=== PATIENT | female | born 1940 | race Caucasian/White ===

== ENCOUNTER 2016-04-07 15:28 | Emergency (ER) | payer MEDICARE, BC ==
[2016-04-07 20:41] VITALS: BP 139/84
== END 2016-04-07 20:41 | disposition home or self-care (01) ==
LOC: ED 15:28
DX: B34.9 Viral infection, unspecified (principal); R53.83 Other fatigue; R53.81 Other malaise
CPT/HCPCS: J7030

== ENCOUNTER 2016-04-11 15:02 | Observation (INO) | payer MEDICARE, BC ==
--- NOTE | 2016-04-11 15:02 | NUR ---
Pt wheeled over from clinic in a wheelchair to be "directly admitted" per Danuta Michaud at this time, will admit patient Observation status into room 206 with diagnosis of UTI, SOB, cough, fatigue and malaise, pt reports she has been sick for days and finally "hit a wall," she was seen in the ER over the weekend but states she has not gotten any relief, c/o nausea, coughing, fever, chills, and malaise, denies SOB at this time, has intermitten cough that she reports is finally getting some thick yellow phlegm up with it, due to recent c/o chest pain in the ER she is placed on telemetry per Danuta Michaud, patient denies chest pain at this time and thinks it was from coughing, VSS, 20G IV placed in right AC upon arrival, complex assessment completed at charted, no skin breakdown noted at this time, only c/o pain at this time is chronic pain in her back that she states is tolerable just "annoying", upon leaving patient is settled in new room, oriented to call light, in bed with call light within reach and TV on, breathing stable on room air, family is at bedside, she is fully alert and oriented, no further needs or concerns
[2016-04-11 17:23] VITALS: BP 138/86
--- NOTE | 2016-04-11 17:46 | NUR ---
Pt c/o nausea since arrival, PRN Zofran did not help with the nausea, PRN Phenergen given additionally, post administration pt seems to be tired and groggy, she is intermittently slurring her words and just c/o being "tired" and wanting to take a nap, will monitor patient closely
[2016-04-11 18:16] VITALS: BP 156/79
[2016-04-11 18:17] VITALS: BP 156/79
--- NOTE | 2016-04-11 19:04 | NUR ---
Pt no longer slurring words, able to easily arouse, fully alert and oriented, states she remembers everything and laughed about "feeling drunk" after the Phenergen, still tired but cognitively intact
[2016-04-11 19:17] VITALS: BP 156/79
[2016-04-11 22:39] VITALS: BP 122/65
[2016-04-12 02:59] VITALS: BP 127/71
[2016-04-12 06:25] VITALS: BP 128/71
--- NOTE | 2016-04-12 10:30 | NUR ---
Pt sitting up in bed. States she feels 100% better. IV infusing as orderd. Pt denies any pain.
[2016-04-12 11:15] VITALS: BP 125/76
--- NOTE | 2016-04-12 11:35 | NUR ---
straight cathed per order, patient tolerated well, spec labeled and to lab
[2016-04-12] MEDS ORDERED: CEFDINIR300 MG PO (14:15)
[2016-04-12] MEDS ORDERED: POTASSIUM CHLO10 ME5 PO (14:16)
[2016-04-12] MEDS ORDERED: AZITHROMYCIN500 M2 PO (14:16)
[2016-04-12 14:47] VITALS: BP 122/77
--- NOTE | 2016-04-12 14:56 | NUR ---
D/C instructions discussed with pt. Pt reports understanding. IV removed complete/intact. Pt requests that Rx be faxed to [facility] for granddaughters to warp picker. Pt is escorted out to [facility] in hospital parking lot.
== END 2016-04-12 14:56 | disposition home or self-care (01) ==
LOC: AMSURD 15:02 → MED/SURG 15:02 → EDSTATUS 15:39 → MED/SURG 04-12 14:56
PROVIDERS: ADMIT Nurse Practitioner Family
DX: J18.9 Pneumonia, unspecified organism (principal); N39.0 Urinary tract infection, site not specified; B96.1 Klebsiella pneumoniae [K. pneumoniae] as the cause of diseases classified elsewhere; E87.6 Hypokalemia; E86.0 Dehydration; I95.1 Orthostatic hypotension; Z85.038 Personal history of other malignant neoplasm of large intestine; Z79.82 Long term (current) use of aspirin
CPT/HCPCS: G0378; G0379; J0696; J0744; J1650; J2405; J2550; J7030

== ENCOUNTER → 2016-04-15 | Outpatient (CLI) | payer MEDICARE, BC ==
[~2016-04-15] MED LIST: AZITHROMYCIN500 M2 PO; CEFDINIR300 MG PO; POTASSIUM CHLO10 ME5 PO
== END ==
LOC: LAB 10:12
DX: E86.9 Volume depletion, unspecified (principal); E87.6 Hypokalemia

== ENCOUNTER → 2016-04-26 | Outpatient (CLI) | payer MEDICARE, BC | LOC: LAB 08:06 | DX: J18.9 Pneumonia, unspecified organism (principal) ==

== ENCOUNTER → 2017-09-23 | Outpatient (CLI) | payer MEDICARE, BC ==
[2017-09-23 10:54] LABS: EOS # 0.1 (0.04-0.40); EOS % 0.8 % (1.0-5.0); HEMATOCRIT 39.8 % (37.0-47.0); MEAN CELL VOLUME 92 fl (78-100); MEAN CORPUSCULAR HEMOGLOBIN 30 pg (27-31); MEAN CORPUSCULAR HGB CONC 33 g/dL (33-37); MEAN PLATELET VOLUME 10.9 fl (7.4-10.4); MONO # 0.4 (0.20-0.80); NEU # 4.5 (1.40-6.50); PLATELET COUNT 236 K/mm3 (130-400); RED BLOOD COUNT 4.32 M/mm3 (4.10-5.30); RED CELL DISTRIBUTION WIDTH 12.8 % (11.5-14.5); WHITE BLOOD COUNT 5.9 K/mm3 (4.8-10.8)
[2017-09-23 11:34] LABS: ALBUMIN 4.4 g/dL (3.5-5.0); BUN/CREATININE RATIO 22.1 (6.0-26.0); CALCIUM 9.3 mg/dL (8.4-10.2); POTASSIUM 4.3 mmol/L (3.6-5.0); TOTAL PROTEIN 7.9 g/dL (6.3-8.2)
[2017-09-23 12:33] LABS: ERYTHROCYTE SEDIMENTATION RATE 19 mm/hr (0-30)
== END ==
LOC: LAB 10:22
PROVIDERS: Internal Medicine
DX: D64.9 Anemia, unspecified (principal); E78.2 Mixed hyperlipidemia; M85.80 Other specified disorders of bone density and structure, unspecified site; Z85.038 Personal history of other malignant neoplasm of large intestine; E03.9 Hypothyroidism, unspecified

== ENCOUNTER → 2017-10-08 | Outpatient (CLI) | payer MEDICARE, BC | LOC: RAD 13:05 → MAMMO 14:00 → RAD 14:00 | DX: Z13.820 Encounter for screening for osteoporosis (principal); M81.0 Age-related osteoporosis without current pathological fracture ==

== ENCOUNTER → 2017-10-08 | Outpatient (CLI) | payer MEDICARE, BC | LOC: MAMMO 13:06 | DX: Z12.31 Encounter for screening mammogram for malignant neoplasm of breast (principal); N63.20 Unspecified lump in the left breast, unspecified quadrant ==

== ENCOUNTER → 2017-11-24 | Outpatient (CLI) | payer MEDICARE, BC | LOC: RAD 09:15 | DX: M47.894 Other spondylosis, thoracic region (principal); M47.896 Other spondylosis, lumbar region; M41.85 Other forms of scoliosis, thoracolumbar region; M16.0 Bilateral primary osteoarthritis of hip ==

== ENCOUNTER → 2017-12-29 | Outpatient (CLI) | payer MEDICARE, BC | LOC: LAB 09:32 | DX: M81.0 Age-related osteoporosis without current pathological fracture (principal) ==

== ENCOUNTER → 2018-04-20 | Outpatient (CLI) | payer MEDICARE, BC ==
[2018-04-20 15:06] LABS: EOS # 0.1 (0.04-0.40); EOS % 1.4 % (1.0-5.0); HEMATOCRIT 37.8 % (37.0-47.0); HEMOGLOBIN 12.3 g/dL (12.5-16.0); MEAN CELL VOLUME 91 fl (78-100); MEAN CORPUSCULAR HEMOGLOBIN 30 pg (27-31); MEAN CORPUSCULAR HGB CONC 33 g/dL (33-37); MEAN PLATELET VOLUME 10.6 fl (7.4-10.4); MONO # 0.5 (0.20-0.80); PLATELET COUNT 237 K/mm3 (130-400); RED BLOOD COUNT 4.16 M/mm3 (4.10-5.30); RED CELL DISTRIBUTION WIDTH 13.8 % (11.5-14.5); WHITE BLOOD COUNT 5.7 K/mm3 (4.8-10.8)
[2018-04-20 15:17] LABS: ALBUMIN 4.2 g/dL (3.5-5.0); POTASSIUM 4.1 mmol/L (3.6-5.0); TOTAL BILIRUBIN 0.7 mg/dL (0.2-1.3); TOTAL PROTEIN 7.3 g/dL (6.3-8.2)
== END ==
LOC: LAB 14:40
PROVIDERS: Internal Medicine
DX: M85.80 Other specified disorders of bone density and structure, unspecified site (principal); E78.2 Mixed hyperlipidemia; Z85.038 Personal history of other malignant neoplasm of large intestine

== ENCOUNTER → 2019-01-01 | Outpatient (CLI) | payer MEDICARE, BC ==
[2019-01-01 10:12] LABS: POTASSIUM 3.9 mmol/L (3.5-5.1)
[2019-01-01 10:13] LABS: ALBUMIN 4.1 g/dL (3.4-4.8); EOS # 0.1 (0.04-0.40); EOS % 1.4 % (1.0-5.0); HEMATOCRIT 36.5 % (37.0-47.0); HEMOGLOBIN 11.6 g/dL (12.5-16.0); LYMPH# 0.9 (1.50-4.00); MEAN CELL VOLUME 90 fl (78-100); MEAN CORPUSCULAR HEMOGLOBIN 29 pg (27-31); MEAN CORPUSCULAR HGB CONC 32 g/dL (33-37); MEAN PLATELET VOLUME 10.6 fl (7.4-10.4); MONO # 0.3 (0.20-0.80); NEU # 4.2 (1.40-6.50); PLATELET COUNT 290 K/mm3 (130-400); RED BLOOD COUNT 4.05 M/mm3 (4.10-5.30); RED CELL DISTRIBUTION WIDTH 14.6 % (11.5-14.5); WHITE BLOOD COUNT 5.6 K/mm3 (4.8-10.8)
[2019-01-01 10:14] LABS: CALCIUM 9.6 mg/dL (8.3-10.5)
[2019-01-01 10:15] LABS: TOTAL PROTEIN 7.1 g/dL (6.2-8.1)
[2019-01-01 10:17] LABS: TOTAL BILIRUBIN 0.6 mg/dL (0.2-1.2)
[2019-01-01 11:38] LABS: ERYTHROCYTE SEDIMENTATION RATE 15 mm/hr (0-30)
== END ==
LOC: LAB 09:50
PROVIDERS: Internal Medicine
DX: D64.9 Anemia, unspecified (principal); E78.2 Mixed hyperlipidemia; M85.80 Other specified disorders of bone density and structure, unspecified site; Z85.038 Personal history of other malignant neoplasm of large intestine

== ENCOUNTER → 2019-01-19 | Outpatient (CLI) | payer MEDICARE, BC | LOC: MAMMO 08:13 | DX: Z12.31 Encounter for screening mammogram for malignant neoplasm of breast (principal); M81.0 Age-related osteoporosis without current pathological fracture ==

== ENCOUNTER → 2019-10-12 | Outpatient (CLI) | payer MEDICARE, BC | LOC: MAMMO 09:56 | DX: M16.9 Osteoarthritis of hip, unspecified (principal) ==

== ENCOUNTER → 2019-10-19 | Outpatient (CLI) | payer MEDICARE, BC ==
[2019-10-19 10:07] LABS: EOS # 0.1 (0.04-0.40); EOS % 2.2 % (1.0-5.0); HEMATOCRIT 41.3 % (37.0-47.0); HEMOGLOBIN 13.6 g/dL (12.5-16.0); LYMPH# 1.1 (1.50-4.00); MEAN CELL VOLUME 93 fl (78-100); MEAN CORPUSCULAR HEMOGLOBIN 31 pg (27-31); MEAN CORPUSCULAR HGB CONC 33 g/dL (33-37); MONO # 0.4 (0.20-0.80); NEU # 3.8 (1.40-6.50); PLATELET COUNT 222 K/mm3 (130-400); RED BLOOD COUNT 4.44 M/mm3 (4.10-5.30); RED CELL DISTRIBUTION WIDTH 13.3 % (11.5-14.5); WHITE BLOOD COUNT 5.5 K/mm3 (4.8-10.8)
[2019-10-19 10:23] LABS: ALBUMIN 4.3 g/dL (3.4-4.8); POTASSIUM 4.1 mmol/L (3.5-5.1)
[2019-10-19 10:24] LABS: CALCIUM 9.6 mg/dL (8.3-10.5)
[2019-10-19 10:25] LABS: TOTAL PROTEIN 7.7 g/dL (6.2-8.1)
[2019-10-19 10:27] LABS: TOTAL BILIRUBIN 0.7 mg/dL (0.2-1.2)
[2019-10-19 12:34] LABS: ERYTHROCYTE SEDIMENTATION RATE 5 mm/hr (0-30)
== END ==
LOC: LAB 09:49
PROVIDERS: Internal Medicine
DX: Z12.11 Encounter for screening for malignant neoplasm of colon (principal); D64.9 Anemia, unspecified; M85.80 Other specified disorders of bone density and structure, unspecified site; Z85.038 Personal history of other malignant neoplasm of large intestine

== ENCOUNTER → 2020-01-25 | Outpatient (CLI) | payer MEDICARE, BC | LOC: MAMMO 08:28 | DX: Z12.31 Encounter for screening mammogram for malignant neoplasm of breast (principal) ==

== ENCOUNTER → 2021-11-30 | Outpatient (CLI) | payer MEDICARE, BC | LOC: LAB 10:47 | DX: Z00.00 Encounter for general adult medical examination without abnormal findings (principal); Z12.31 Encounter for screening mammogram for malignant neoplasm of breast; Z12.11 Encounter for screening for malignant neoplasm of colon; Z13.29 Encounter for screening for other suspected endocrine disorder; Z13.1 Encounter for screening for diabetes mellitus; E55.9 Vitamin D deficiency, unspecified; K57.90 Diverticulosis of intestine, part unspecified, without perforation or abscess without bleeding; K44.9 Diaphragmatic hernia without obstruction or gangrene; K90.9 Intestinal malabsorption, unspecified; E78.2 Mixed hyperlipidemia; M81.0 Age-related osteoporosis without current pathological fracture; Z85.038 Personal history of other malignant neoplasm of large intestine ==

== ENCOUNTER → 2023-04-09 | Outpatient (CLI) | payer MEDICARE, BC ==
[2023-04-09 14:23] LABS: BASO # 0.04 K/mm3 (0.02-0.10); EOS # 0.05 K/mm3 (0.04-0.40); EOS % 0.8 % (1.0-5.0); HEMATOCRIT 40.4 % (37.0-47.0); HEMOGLOBIN 13.3 g/dL (12.5-16.0); LYMPH# 1.03 K/mm3 (1.50-4.00); MEAN CELL VOLUME 96 fl (78-100); MEAN CORPUSCULAR HEMOGLOBIN 32 pg (27-31); MEAN CORPUSCULAR HGB CONC 33 g/dL (33-37); MEAN PLATELET VOLUME 10.1 fl (7.4-10.4); MONO # 0.41 K/mm3 (0.20-0.80); NEU # 4.89 K/mm3 (1.40-6.50); PLATELET COUNT 231 K/mm3 (130-400); RED CELL DISTRIBUTION WIDTH 11.8 % (11.5-14.5); WHITE BLOOD COUNT 6.4 K/mm3 (4.8-10.8)
[2023-04-09 14:29] LABS: ALBUMIN 4.2 g/dL (3.4-4.8)
[2023-04-09 14:30] LABS: CALCIUM 9.2 mg/dL (8.3-10.5)
[2023-04-09 14:32] LABS: TOTAL PROTEIN 7.1 g/dL (6.2-8.1)
[2023-04-09 14:33] LABS: TOTAL BILIRUBIN 0.86 mg/dL (0.2-1.2)
== END ==
LOC: LAB 14:01
PROVIDERS: Physician Assistant
DX: M81.0 Age-related osteoporosis without current pathological fracture (principal); K90.9 Intestinal malabsorption, unspecified; E78.2 Mixed hyperlipidemia

== ENCOUNTER 2024-04-13 13:01 | Inpatient (IN) | payer MEDICARE, BC ==
[~2024-04-13] VITALS: Ht 149.9 cm; Wt 49.3 kg
[~2024-04-13 13:01] MED LIST changes: -cefTRIAXone 1 G in Water For Injection,Sterile 10 ML IV ONE
[2024-04-13] MEDS ORDERED: Bisacodyl 5 MG TAB PO PRN (14:00)
[2024-04-13] MEDS ORDERED: Acetaminophen 325 MG TAB PO PRN (14:00)
[2024-04-13 14:18] VITALS: BP 165/82
[2024-04-13 15:00] VITALS: BP 143/87
[2024-04-13] MEDS ORDERED: Ondansetron 4 MG/2 ML VIAL IV PRN (15:30)
[2024-04-13] MEDS ORDERED: Iohexol 350 - 100 ML VIAL IV ONE (16:04)
[2024-04-13] MEDS ORDERED: NS 100 ML IV SCH (16:05)
[2024-04-13 19:00] VITALS: BP 120/74
[2024-04-13 22:35] VITALS: BP 120/74
[2024-04-14 03:00] VITALS: BP 115/75
[2024-04-14 05:59] LABS: BASO # 0.01 K/mm3 (0.02-0.10); HEMATOCRIT 37.6 % (37.0-47.0); HEMOGLOBIN 12.5 g/dL (12.5-16.0); LYMPH# 0.63 K/mm3 (1.50-4.00); MEAN CELL VOLUME 95 fl (78-100); MEAN CORPUSCULAR HEMOGLOBIN 32 pg (27-31); MEAN CORPUSCULAR HGB CONC 33 g/dL (33-37); MEAN PLATELET VOLUME 10.7 fl (7.4-10.4); MONO # 0.81 K/mm3 (0.20-0.80); NEU # 8.95 K/mm3 (1.40-6.50); PLATELET COUNT 174 K/mm3 (130-400); RED BLOOD COUNT 3.94 M/mm3 (4.10-5.30); RED CELL DISTRIBUTION WIDTH 12.4 % (11.5-14.5); WHITE BLOOD COUNT 10.4 K/mm3 (4.8-10.8)
[2024-04-14 06:11] LABS: ALBUMIN 3.6 g/dL (3.4-4.8)
[2024-04-14 06:12] LABS: CALCIUM 8.8 mg/dL (8.3-10.5)
[2024-04-14 06:13] LABS: TOTAL PROTEIN 6.7 g/dL (6.2-8.1)
[2024-04-14 06:15] LABS: TOTAL BILIRUBIN 1.2 mg/dL (0.2-1.2)
[2024-04-14 08:12] VITALS: BP 100/67
[2024-04-14] MEDS ORDERED: Albuterol/Ipratropium 3 MG-0.5 MG/3 ML Neb Soln IH SCH (09:05)
[2024-04-14] MEDS ORDERED: Albuterol 0.083% Nebule (2.5 MG/3 ML) IH PRN (09:15)
[2024-04-14 10:28] VITALS: BP 123/74
[2024-04-14] MEDS ORDERED: cefTRIAXone 1 G in Water For Injection,Sterile 10 ML IV SCH (13:00)
[2024-04-14 15:45] VITALS: BP 122/68
[2024-04-14 19:05] VITALS: BP 117/74
[2024-04-14 23:26] VITALS: BP 114/66
[2024-04-15 03:00] VITALS: BP 117/66
[2024-04-15 07:31] VITALS: BP 106/73
[2024-04-15 07:33] LABS: HEMATOCRIT 37.1 % (37.0-47.0); HEMOGLOBIN 12.4 g/dL (12.5-16.0); MEAN CELL VOLUME 95 fl (78-100); MEAN CORPUSCULAR HEMOGLOBIN 32 pg (27-31); MEAN CORPUSCULAR HGB CONC 33 g/dL (33-37); MEAN PLATELET VOLUME 10.6 fl (7.4-10.4); PLATELET COUNT 159 K/mm3 (130-400); RED BLOOD COUNT 3.91 M/mm3 (4.10-5.30); RED CELL DISTRIBUTION WIDTH 12.3 % (11.5-14.5); WHITE BLOOD COUNT 6.9 K/mm3 (4.8-10.8)
[2024-04-15 07:41] LABS: ALBUMIN 3.6 g/dL (3.4-4.8)
[2024-04-15 07:42] LABS: CALCIUM 9.1 mg/dL (8.3-10.5)
[2024-04-15 07:44] LABS: TOTAL PROTEIN 6.8 g/dL (6.2-8.1)
[2024-04-15 07:45] LABS: TOTAL BILIRUBIN 0.9 mg/dL (0.2-1.2)
[2024-04-15 08:15] LABS: LYMPHOCYTE 9 % (20-51); MONOCYTE 6 % (3-10); NEUTROPHILS 85 % (42-75)
[2024-04-15 11:24] VITALS: BP 106/70
[2024-04-15] MEDS ORDERED: cefTRIAXone 1 G,Lidocaine 2.1 ML IM SCH (14:00)
[2024-04-15 15:24] VITALS: BP 132/69
[2024-04-15] MEDS ORDERED: Cholecalciferol (Vit D3) 25 MCG (1,000 Units) TAB PO SCH (16:49)
[2024-04-15] MEDS ORDERED: Cyanocobalamin (Vit B-12) 1,000 MCG TAB PO SCH (16:50)
[2024-04-15] MEDS ORDERED: Azithromycin 250 MG TAB PO ONE (17:00)
[2024-04-15 19:51] VITALS: BP 122/82
[2024-04-15 23:21] VITALS: BP 102/66
[2024-04-16 03:00] VITALS: BP 103/66
[2024-04-16 06:50] LABS: HEMATOCRIT 33.6 % (37.0-47.0); HEMOGLOBIN 11.4 g/dL (12.5-16.0); MEAN CELL VOLUME 94 fl (78-100); MEAN CORPUSCULAR HEMOGLOBIN 32 pg (27-31); MEAN CORPUSCULAR HGB CONC 34 g/dL (33-37); MEAN PLATELET VOLUME 10.6 fl (7.4-10.4); PLATELET COUNT 177 K/mm3 (130-400); RED BLOOD COUNT 3.58 M/mm3 (4.10-5.30); RED CELL DISTRIBUTION WIDTH 12.2 % (11.5-14.5); WHITE BLOOD COUNT 4.2 K/mm3 (4.8-10.8)
[2024-04-16 07:00] LABS: ALBUMIN 3.3 g/dL (3.4-4.8)
[2024-04-16 07:03] LABS: TOTAL PROTEIN 6.4 g/dL (6.2-8.1)
[2024-04-16 07:05] LABS: TOTAL BILIRUBIN 0.6 mg/dL (0.2-1.2)
[2024-04-16 07:16] VITALS: BP 124/78
[2024-04-16] MEDS ORDERED: Azithromycin 250 MG TAB PO SCH (09:00)
[2024-04-16 09:01] LABS: LYMPHOCYTE 15 % (20-51); MONOCYTE 8 % (3-10); NEUTROPHILS 77 % (42-75)
[2024-04-16 11:19] VITALS: BP 109/70
[2024-04-16 15:35] VITALS: BP 109/71
== END 2024-04-16 19:12 | disposition swing bed (61) | DRG 690 ==
LOC: MED/SURG 13:01
PROVIDERS: Family Medicine; ADMIT Physician Assistant
DX: N39.0 Urinary tract infection, site not specified (principal); J01.90 Acute sinusitis, unspecified; E87.6 Hypokalemia; B96.20 Unspecified Escherichia coli [E. coli] as the cause of diseases classified elsewhere; R09.02 Hypoxemia; R53.81 Other malaise; Z66 Do not resuscitate
CPT/HCPCS: J0696; J1650; J2405; Q9967

== ENCOUNTER → 2024-04-13 | Emergency (ER) | payer MEDICARE, BC ==
[~2024-04-13] VITALS: Ht 152.4 cm; Wt 63.1 kg
[~2024-04-13] MED LIST changes: +cefTRIAXone 1 G in Water For Injection,Sterile 10 ML IV ONE
[2024-04-13 11:16] LABS: HEMATOCRIT 38.9 % (37.0-47.0); HEMOGLOBIN 12.8 g/dL (12.5-16.0); MEAN CELL VOLUME 97 fl (78-100); MEAN CORPUSCULAR HEMOGLOBIN 32 pg (27-31); MEAN CORPUSCULAR HGB CONC 33 g/dL (33-37); MEAN PLATELET VOLUME 10.3 fl (7.4-10.4); PLATELET COUNT 141 K/mm3 (130-400); RED BLOOD COUNT 4.03 M/mm3 (4.10-5.30); RED CELL DISTRIBUTION WIDTH 12.3 % (11.5-14.5); WHITE BLOOD COUNT 9.8 K/mm3 (4.8-10.8)
[2024-04-13 11:24] LABS: ALBUMIN 3.8 g/dL (3.4-4.8)
[2024-04-13 11:25] LABS: SODIUM 136 mmol/L (136-145)
[2024-04-13 11:26] LABS: CALCIUM 8.5 mg/dL (8.3-10.5)
[2024-04-13 11:27] LABS: GLUCOSE 102 mg/dL (65-105); TOTAL PROTEIN 6.9 g/dL (6.2-8.1)
[2024-04-13 11:28] LABS: CARBON DIOXIDE 21 mmol/L (23-31)
[2024-04-13 11:29] LABS: TOTAL BILIRUBIN 0.8 mg/dL (0.2-1.2)
[2024-04-13 11:30] LABS: LYMPHOCYTE 4 % (20-51); MONOCYTE 5 % (3-10); NEUTROPHILS 91 % (42-75)
[2024-04-13 11:32] LABS: AST-SGOT 29 U/L (5-34)
[2024-04-13 11:33] LABS: ALT/SGPT 15 U/L (0-55)
[2024-04-13 11:40] LABS: TROPONIN-I < 0.030 ng/mL (0.00-0.033)
[2024-04-13 12:45] LABS: URINE APPEARANCE CLEAR (CLEAR); URINE BLOOD TRACE-INTACT (NEGATIVE); URINE COLOR YELLOW (YELLOW); URINE GLUCOSE NEGATIVE (NEGATIVE); URINE KETONE NEGATIVE (NEGATIVE); URINE LEUKOCYTE ESTERASE NEGATIVE (NEGATIVE); URINE NITRATE POSITIVE (NEGATIVE)
[2024-04-13 12:46] LABS: URINE BILIRUBIN NEGATIVE (NEGATIVE); URINE PROTEIN(semi-quant) 1+ (NEGATIVE)
[2024-04-13 12:47] LABS: URINE MUCUS PRESENT (NOT PRESENT)
[2024-04-13 13:25] VITALS: BP 154/82
== END ==
LOC: ED 10:34
PROVIDERS: Physician Assistant
DX: R41.82 Altered mental status, unspecified (principal); N39.0 Urinary tract infection, site not specified; Z85.038 Personal history of other malignant neoplasm of large intestine

== ENCOUNTER 2024-04-16 17:52 | Inpatient (IN) | payer MEDICARE, BC ==
[~2024-04-16] VITALS: Ht 27.9 cm; Wt 48.7 kg
[2024-04-16] MEDS ORDERED: Acetaminophen 325 MG TAB PO PRN (18:00)
[2024-04-16] MEDS ORDERED: Albuterol 0.083% Nebule (2.5 MG/3 ML) IH PRN (18:30)
[2024-04-16] MEDS ORDERED: cefTRIAXone 1 G in Water For Injection,Sterile 10 ML IV SCH (18:30)
[2024-04-16 19:00] VITALS: BP 125/81
--- NOTE | 2024-04-16 19:04 | NUR ---
PT STATUS CHANGED TO SWING BED, PT DAUGHTER PRESENT FOR DISCUSSION WITH PROVIDER YOLANDA BECKFORD.
--- NOTE | 2024-04-16 19:09 | NUR ---
REPORT TO ASHA TINOCO
--- NOTE | 2024-04-16 19:24 | NUR ---
Report received from Edmund CHAPA. Patient sets up bed alarm to go to BR. Assisted SBA, no device, gait steady. Voids and assisted back to bed. Confused. Oriented to self only. Denies pain. Assessment completed. Bed alarm on. Call light in reach.
--- NOTE | 2024-04-16 21:46 | NUR ---
Calls and states to ANGIOGRAPHER that she is looking for the men's section. "do they keep them in a separate place". Also has called and states that she needs to call her daughter as she has her medication. Reoriented to place and that the hospital will give her medications.
--- NOTE | 2024-04-17 01:27 | NUR ---
Sets off bed alarm. Standing in corner of room when staff enters. "I'm going to the bathroom". This nurse directs to direction of the bathroom, patient states "no I am going right here". Advised that is not a toilet and again directed to the bathroom. Patient walks towards bathroom in a diaz trying to push nurse away. Assisted to toilet and when nurse wanted to inspect brief patient states "they are not wet" Patient wearing 2 pullups per her choice". Nurse again wants to look and patient states "go ahead then, they are dry". Inner brief noted to be wet. New brief applied, currently wearing one. Patient educated on need to change due to urinary tract infection and not to double brief. Patient is confused and unable to retain information. Assisted back to bed and positioned for comfort.
--- NOTE | 2024-04-17 06:05 | NUR ---
Rested off and on. Sets off alarm at times and uses call light other times. Remains confused to place and situation. Denies pain. Up with SBA, no device.
--- NOTE | 2024-04-17 06:15 | NUR ---
Up to BR per request. Had large BM. To recliner per request with cup of coffee provided. States to LEAD BURNER APPRENTICE that she is wanting to leave today. Currently on phone.
--- NOTE | 2024-04-17 07:01 | NUR ---
Report Wave RN
[2024-04-17 08:44] VITALS: BP 126/80
[2024-04-17] MEDS ORDERED: Azithromycin 250 MG TAB PO SCH (09:00)
[2024-04-17] MEDS ORDERED: Cholecalciferol (Vit D3) 25 MCG (1,000 Units) TAB PO SCH (09:00)
[2024-04-17] MEDS ORDERED: Cyanocobalamin (Vit B-12) 1,000 MCG TAB PO SCH (09:00)
[2024-04-17 11:51] VITALS: BP 120/77
[2024-04-17] MEDS ORDERED: cefTRIAXone 1 G in Water For Injection,Sterile 10 ML IV SCH (13:00)
--- NOTE | 2024-04-17 14:05 | NUR ---
PT REQUIRES CLOSE ATTENTION SHE FORGETS WHERE SHE IS OR HER OWN ABILITIES. PT IS FORGETFUL AND MISPLACES HER ITEMS.
[2024-04-17 19:00] VITALS: BP 153/90
--- NOTE | 2024-04-17 20:30 | NUR ---
Pt is laying in bed with eyes closed. Nursing assessment preformed no abnoraml findings pt denies pain. Pt remaines confussed. Bed alarms on for pt safety due to confusion, Call light in reach of pt.
[2024-04-18 07:00] VITALS: BP 133/80
--- NOTE | 2024-04-18 07:19 | NUR ---
REPORT FROM REBA CHAPA
--- NOTE | 2024-04-18 11:04 | NUR ---
PT ALERT AND ORIETNED X4, COULD NOT RECALL THE YEAR BUT WAS AWARE OF DAY, BIRTHDAY AND LOCATION. PT RESTING IN CHAIR FOR ASSESSMENT. PT REPORTS NO PAIN THIS MORNING, PT GIVEN SHOWER BY GUY BURROUGHS. PT GIVEN MEDS BY MARRY CHAPA. PT NOW RESTING IN HER CHAIR WITH VISITOR AT BEDSIDE, CALL LIGHT IN REACH. CHAIR ALARM ON
--- NOTE | 2024-04-18 12:10 | NUR ---
PT RESTING IN TRAY EATING HER LUNCH NOW
--- NOTE | 2024-04-18 15:12 | NUR ---
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
--- NOTE | 2024-04-18 17:14 | NUR ---
THIS NURSE AND PT DAUGHTER TOOK PT ON A WALK, PT WALKED VERY WELL. PT DAUGHTER STATES THAT THIS IS PTS BASELINE FOR COGNITION AND IS INTERESTED IN DISCHARGE THIS WEEK. THIS NURSE AND PT DAUGHTER SPOKE WITH PROVIDER LILLY ABOUT OPTIONS AND BEST PLANS PT AGREEABLE TO PLAN
--- NOTE | 2024-04-18 18:55 | NUR ---
REPORT TO REBA CHAPA
--- NOTE | 2024-04-18 18:56 | NUR ---
Report recevied from Denise CHAPA
--- NOTE | 2024-04-18 20:10 | NUR ---
Pt is laying in bed in er 5 watching the football game on the TV. Pt remaines confused she belives she is going to leave after the game is over. Pt is difficule to redirect. Bed alarms on for safety and call light in reach of the pt. Pt will be taken back to 302 after the rika is over
[2024-04-18 20:14] VITALS: BP 119/71
--- NOTE | 2024-04-18 23:55 | NUR ---
Pt set off bed yulisa, pt is sitting on the side of her bed with her pants with her pants pulled down. When asked what she was doing pt repors she needed to go to the [facility]. Pt was assissted tot he bathroom.
--- NOTE | 2024-04-19 06:18 | NUR ---
Pt has slept through most of the night ocassionaly getting up to use the bathroom. Pt remaines confused and dose not use the call light. Bed alarms are on for pt safety and to alert staff to when she is gettign up. Call ight is in reach of pt at all times.
--- NOTE | 2024-04-19 06:52 | NUR ---
REport given to Fernanda Ricci RN
[2024-04-19 07:11] LABS: BASO # 0.02 K/mm3 (0.02-0.10); EOS % 1.3 % (1.0-5.0); HEMOGLOBIN 14.1 g/dL (12.5-16.0); LYMPH# 0.89 K/mm3 (1.50-4.00); MEAN CELL VOLUME 94 fl (78-100); MEAN CORPUSCULAR HEMOGLOBIN 32 pg (27-31); MEAN CORPUSCULAR HGB CONC 34 g/dL (33-37); MEAN PLATELET VOLUME 10.2 fl (7.4-10.4); MONO # 0.64 K/mm3 (0.20-0.80); NEU # 5.95 K/mm3 (1.40-6.50); PLATELET COUNT 287 K/mm3 (130-400); RED BLOOD COUNT 4.46 M/mm3 (4.10-5.30); RED CELL DISTRIBUTION WIDTH 11.7 % (11.5-14.5); WHITE BLOOD COUNT 7.7 K/mm3 (4.8-10.8)
--- NOTE | 2024-04-19 07:12 | NUR ---
pt DC'D HER OWN IV, NO BLEEDING OR SWELLING AT THE SITE. PROVIDER CARR NOTIFIED, LAST DOSE OF ROCEPHIN CHANGED TO IM
[2024-04-19] MEDS ORDERED: cefTRIAXone 1 G,Lidocaine 2.1 ML IM ONE (07:15)
[2024-04-19 07:19] LABS: ALBUMIN 3.8 g/dL (3.4-4.8)
[2024-04-19 07:21] LABS: CALCIUM 9.4 mg/dL (8.3-10.5)
[2024-04-19 07:22] LABS: TOTAL PROTEIN 7.4 g/dL (6.2-8.1)
[2024-04-19 07:24] LABS: TOTAL BILIRUBIN 0.5 mg/dL (0.2-1.2)
[2024-04-19 07:40] VITALS: BP 130/83
--- NOTE | 2024-04-19 08:39 | NUR ---
PT ALERT AND ORIENTED X3, PT CAN RECALL NAME AND DATE OF , LOCATION, AND DAY OF THE WEEK. PT DENIES ANY PAIN, PT RESTING IN HER CHAIR FOR ASSESSMENT. PT REPORTS SHE DID NOT HAVE THE BEST NIGHT LAST NIGHT. PT RESTING IN HER CHAIR FOR BREAKFAST, PT DENIES ANY FURHTER NEEDS AT THIS TIME
--- NOTE | 2024-04-19 11:47 | NUR ---
PT RESTING IN BED WITH CALL LIGHT IN REACH
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
--- NOTE | 2024-04-19 16:25 | NUR ---
PT DAUGHTER HERE FOR DISCHARGE
[2024-04-19] MEDS ORDERED: VITAMIN B12 1541 TAB PO (16:37)
[2024-04-19] MEDS ORDERED: VITAMIN D325 MC2 PO (16:38)
--- NOTE | 2024-04-19 16:39 | NUR ---
MOHINI RN, PROVIDER LILLY AND THIS NURSE IN TO DISCUSS DISCHARGE WITH PT DAUGHTER, PROVIDER LILLY EXPRESSED CONCERN REGARDING DISCHARGE TO CURRENT LIVING SITUATION GIVEN PT MEMORY PROBLEMS AND SAFETY CONCERNS. AT THIS TIME PT AND PT DAUGHTER WISH TO CONTINUE WITH DISCHARGE
--- NOTE | 2024-04-19 16:41 | NUR ---
PT AND PT DAUGHTER REFUSE 2 DAY DISCHARGE NOTICE
--- NOTE | 2024-04-19 16:52 | NUR ---
PT AND PT DAUGHTER WHO IS DPOA, GIVEN ALL DISCHARGE PAPERWORK. ALL QUESTIONS ANSWERED AT THIS TIME, PT DAUGHTER DENIES ANY FURHTER QUESTIONS AND PT EXPRESSED GRATITUDE FOR CARE SHE RECEIVED HERE. PT DAUGHTER SIGNED ALL DISCHARGE PAPERWORK. PT DAUGHTER BROUGHT THE CAR UP WHILE THIS NURSE AND PT AMBUALTED TO [facility]. PT LOADED INTO VEHICLE SAFELY AND PT DISCHARGED AT THIS TIME
== END 2024-04-19 16:52 | disposition home or self-care (01) | DRG 948 ==
LOC: MED/SURG 17:52
PROVIDERS: ADMIT Nurse Practitioner
DX: R53.81 Other malaise (principal); N39.0 Urinary tract infection, site not specified; B96.20 Unspecified Escherichia coli [E. coli] as the cause of diseases classified elsewhere; Z66 Do not resuscitate
CPT/HCPCS: J0696; J1650